=== PATIENT | female | born 2000 | race Caucasian/White ===

== ENCOUNTER 2018-04-04 00:14 | Inpatient (IN) | payer OTHER ==
[2018-04-04] MEDS ORDERED: PROPOFOL/EMULSION 1,000 MG/100 ML BOTTLE IV ONE (00:20)
[2018-04-04] MEDS ORDERED: NS 1,000 ML IV ONE ×2 (00:21→00:23)
[2018-04-04] MEDS ORDERED: SUCCINYLCHOLINE CHLORIDE 200 MG/10 ML SYR IVP ONE (00:22)
[2018-04-04] MEDS ORDERED: ETOMIDATE 40 MG/20 ML INJ IVP ONE (00:22)
[2018-04-04] MEDS ORDERED: ONDANSETRON 4 MG/2 ML VIAL IVP ONE (00:22)
[2018-04-04] MEDS: PROPOFOL/EMULSION 100 ML IV SCH ×2 (00:30→07:55)
[2018-04-04 00:31] LABS: PLATELET COUNT 435 10^3/uL (150-400)
--- NOTE | 2018-04-04 00:31 | EDPHY ---
H & P Time Seen by Provider: 04/04/18 00:24 HPI/ROS: HPI CHIEF COMPLAINT: Unresponsive, alcohol intoxication, unknown drugs, unknown trauma HISTORY OF PRESENT ILLNESS: 17-year-old female, Haydee Nguyen, presents to the emergency room, unresponsive, GCS of 3 upon arrival. She arrived to the emergency room with an oral airway in. Gurgling secretions and hiccuping. EMS reports that she was found outside a fraternity house. Is unclear of drug ingestion or how much alcohol she had. Additionally there is an abrasion seen over nose. No other reported trauma. The patient was initially placed in ER room for however due to help unresponsive she was and GCS of 3 she was moved to ER room 2 for emergent intubation to protect her airway. Blood sugar reported to me as normal upon arrival per EMS. She was placed in a cervical collar. And the patient was emergently intubated upon arrival. Past Medical History: Unknown medical history Past Surgical History: Unknown surgical history Social History: Alcohol this evening unknown co ingestions. Family History: Unknown ROS REVIEW OF SYSTEMS: Limited due to patient's clinical state. Exam Constitutional unresponsive GCS of 3. Gurgling secretions. Hiccuping. Eyes dysconjugate gaze. Pupils 3 mm minimally reactive to light. HENT abrasion to the nasal bridge otherwise atraumatic head and neck exam. moist mucus membranes, no epistaxis, neck supple/ no meningismus, no raccoon eyes. Respiratory gurgling respiration , upper airway secretions hiccuping. Cardiovascular rate normal, regular rhythm, no murmur, no edema, distal pulses normal. Gastrointestinal soft, non-tender, no rebound, no guarding, normal bowel sounds, no distension, no pulsatile mass. Genitourinary no CVA tenderness. Musculoskeletal no midline vertebral tenderness, full range of motion, no calf swelling, no tenderness of extremities, no meningismus, good pulses, neurovascularly intact. Skin abrasion nasal bridge Neurologic unresponsive GCS of 3. Differential Diagnosis: Includes but is not limited to in a particular order acute alcohol intoxication, drug overdose, polysubstance overdose, respiratory failure, intracranial bleed, trauma Medical Decision Making: Plan for this patient she will need to be emergently intubated due to protect her airway giving secretions on exam, unresponsive, hiccuping and most likely acute alcohol intoxication with possible other substance. Re-evaluation: 1220AM: ED intubation Indication for intubation GCS of 3 unresponsive with gurgling secretions and hiccuping. Patient was preoxygenated with a non-rebreather mask, and high-flow oxygen. Oxygen saturation was 100%. RSI medications were used for induction and paralytic. Patient received 20 mg IV etomidate 120 mg succinylcholine A direct visualization of the cords with a MAC 4 blade was obtained. Was able to pass a 7 0 endotracheal tube directly through the cords. The intubation was confirmed with capnography for change, humidified return of air, bilateral breath sounds on exam, and chest x-ray 1230: Patient tolerated intubation well. Plan for blood work, alcohol level, drug screen, Mahajan, OG tube. CT scan head without and cervical spine without for trauma. IV fluids and Zofran. ED x-ray chest one view reviewed for intubation. Endotracheal tube in good position good aeration of both lungs cardiac silhouette normal in size no pneumothorax. OG appears to be in good position with the tip below the diaphragm in the stomach. Image interpreted by myself. Serum alcohol level 504. EKG interpretation by me on record in [facility] system. Impression time of EKG 1:03 a.m., sinus rhythm rate of 75 no signs of acute ischemia or cardiac arrhythmia. Critical Care: Total Critical Care Time Spent Managing this Patient: 65 Minutes. This time was spent Exclusively with this patient. This Care was exclusive of procedures. The Organ System/life at risk was respiratory failure due to acute alcohol intoxication This Patient was in Critical Condition because respiratory failure. X-ray of the chest due to endotracheal tube being pulled back 1 cm endotracheal tube position is good position. Good inflation of the lungs. OG in place. Spoke with Dr. Costa who agrees to admit the patient for respiratory failure for acute alcohol intoxication. 0236: Hospitalist consult to Dr. Costa. Patient remained stable and intubated at this time. Will be transferred to the ICU shortly. Multiple attempts were made to contact her mom. Mom's phone number [phone] Mom's name is Jagruti Source: Patient, EMS Constitutional: Initial Vital Signs Heart Rate 78 04/04/18 00:05 Respiratory Rate 8 L 04/04/18 00:05 Blood Pressure 117/88 H 04/04/18 00:05 O2 Sat (%) 99 04/04/18 00:05 O2 Delivery Mode Ventilator O2 (L/minute) 15 Allergies/Adverse Reactions: peanut Allergy (Verified 04/04/18 11:15) Home Medications: Medication Instructions Recorded Amphet Asp and D/Amphet [Adderall 20 mg PO DAILY PRN 04/04/18 20 mg (*)] Levalbuterol Inhaler [Xopenex Hfa 1 puffs IH TID PRN 04/04/18 Inhaler (*)] Mometasone Furoate Nasal [Nasonex] 1 sprays NASAL DAILY PRN 04/04/18 Mometasone/Formoterol [Dulera 100 1 puffs IH BID 04/04/18 Mcg/5 Mcg Inhaler] Medical Decision Making - Diagnostics Imaging Results: Imaging Impressions Cervical Spine CT 04/04/18 00:22 Impression: 1. No definite fracture. 2. If there is persistent pain or neurological deficit, recommend MR cervical spine and consider flexion and extension views, if clinically indicated. Findings and recommendations discussed with Emergency Department physician, Michael Rodrigues MD, at 0110 hours, 04/04/2018. Final report concurs with initial preliminary interpretation. Head CT 04/04/18 00:22 Impression: 1. Severe chronic sinusitis. 2. No intracranial hemorrhage. Findings and recommendations discussed with Emergency Department physician, Michael Rodrigues MD at 0110 hours, 04/04/2018. Final report concurs with initial preliminary interpretation. - Data Points Laboratory Results: Laboratory Results 04/04/18 00:20 04/04/18 00:20 Medications Given: Discontinued Medications Etomidate (Etomidate) 20 mg IVP EDNOW ONE Stop: 04/04/18 00:23 Last Admin: 04/04/18 00:10 Dose: 20 mg Sodium Chloride (Ns) 1,000 mls @ 0 mls/hr IV EDNOW ONE; Wide Open PRN Reason: Protocol Stop: 04/04/18 00:22 Last Admin: 04/04/18 00:20 Dose: 1,000 mls Sodium Chloride (Ns) 1,000 mls @ 0 mls/hr IV ONCE ONE PRN Reason: Wide Open Stop: 04/04/18 00:24 Last Admin: 04/04/18 00:25 Dose: 1,000 mls Propofol (Diprivan 10 Mg/Ml (Premix)) 100 mls @ 0 mls/hr IV CONT MARI; Titrate PRN Reason: Protocol Stop: 10/01/18 00:29 Last Admin: 04/04/18 07:55 Dose: 100 mls Sodium Chloride (Ns) 1,000 mls @ 125 mls/hr IV CONT MARI Stop: 10/01/18 02:59 Last Admin: 04/04/18 04:19 Dose: 1,000 mls Ondansetron HCl (Zofran) 4 mg IVP EDNOW ONE Stop: 04/04/18 00:23 Last Admin: 04/04/18 00:33 Dose: 4 mg Pantoprazole Sodium (Protonix) 40 mg IVP DAILY MARI Stop: 10/01/18 08:59 Last Admin: 04/04/18 07:55 Dose: 40 mg Succinylcholine Chloride (Quelicin) 120 mg IVP EDNOW ONE Stop: 04/04/18 00:23 Last Admin: 04/04/18 00:10 Dose: 120 mg Point of Care Test Results: Chemistry 04/04/18 01:01 POC Troponin I 0.00 ng/mL ng/mL (0.00-0.08) Blood Gas/Lactic Acid-Arterial 04/04/18 01:10 Tidal Volume 420 Departure - Departure Disposition: [facility] Inpatient Acute Clinical Impression: Respiratory failure Qualifiers: Chronicity: acute Respiratory failure complication: hypoxia Qualified Code(s): J96.01 - Acute respiratory failure with hypoxia Alcohol intoxication Qualifiers: Complication of substance-induced condition: with unspecified complication Qualified Code(s): F10.929 - Alcohol use, unspecified with intoxication, unspecified Condition: Critical
[2018-04-04 00:40] LABS: INR 1.03 (0.83-1.16); PROTIME(PATIENT) 13.7 SEC (12.0-15.0)
[2018-04-04] MEDS ORDERED: ONDANSETRON DISINTEGRATING 4 MG TAB PO PRN (02:52)
[2018-04-04] MEDS ORDERED: PROMETHAZINE HCL 25 MG/ML INJ IVP PRN (02:52)
[2018-04-04] MEDS ORDERED: ONDANSETRON 4 MG/2 ML VIAL IVP PRN (02:52)
[2018-04-04] MEDS ORDERED: ACETAMINOPHEN 325 MG TAB PO PRN (02:52)
[2018-04-04] MEDS ORDERED: NS 1,000 ML IV SCH (03:00)
--- NOTE | 2018-04-04 04:07 | GHP ---
DATE OF ADMISSION: 04/04/2018 The patient is a 17-year-old female with no known past medical history who was found intoxicated outs [place] a fraternity house at [facility]. She was brought to the emergency department with a GCS of 3 and no obvious signs of trauma other than a cut on her nose from possibly falling. She had an oral airway and gurgling secretions and hiccups, and was intubated here. On speaking with the emergency room physician it sounds like there was no evidence of trauma or sexua l assault when Mahajan was placed. The emergency medicine physician left a message for the patient's mother. When I see the patient, she is intubated, sedated with reactive pupils, but otherwise unremarkable. REVIEW OF SYSTEMS: Complete 10-point review of systems attempted, unable to be obtained. PAST MEDICAL HISTORY: Unknown. PAST SURGICAL HISTORY: Unknown. SOCIAL HISTORY: She is a student at from [place]. ALLERGIES: Tree nuts. MEDICATIONS: Unobtainable. FAMILY HISTORY: Unknown. PHYSICAL EXAMINATION: VITAL SIGNS: Temperature 37, blood pressure 110/67, pulse 78, breathing 16 ti mes a minute, 97% on room air. GENERAL: Intubated, sedated. Pupils are equal, round, reactive. Th ere is a small abrasion on her nose, but otherwise unremarkable. Her neck is in a hard collar. LUNG S: Clear to auscultation anterolaterally. HEART: S1, S2. Not tachycardic. ABDOMEN: Soft. LOWER EXTREMITIES: Without edema. SKIN: Without rash, is clean. There is no evidence of trauma. There is a Mahajan in place. NEUROLOGIC: The patient is sedated. LABS: White count 17.5 with a left shift. She has an elevated lymphocyte count, hematocrit 42, plat elets 435,000. Coags normal. ABG is a pH of 7.28 with a pCO2 of 39, PO2 of 321, and a serum bicarb of 19. Sodium 139, potassium 3.7, chloride 106, bicarb 20, BUN 10, creatinine 0.7, glucose 104. LFT s normal. Beta HCG negative. Troponin 0.00. Tox screen is non-negative for amphetamine as well as an alcohol level of 500. Chest x-ray interpreted by me shows ET tube above the rosa with clear lungs, normal heart size. Cervical spine CT is unremarkable for bony injury. Head CT is unremarkable. I discussed the case with Dr. Michael Rodrigues. ASSESSMENT/PLAN: A 17-year-old female found down with significant alcohol intoxication. 1. Respiratory failure. The patient is intubated for airway issues secondary to her intoxication. She has clear lungs. We will keep her on a vent strategy overnight and expect to extubate her when s he is more alert. 2. Alcohol intoxication. This is significant for a 17-year-old. She does not appear to be an alcoh olic in the sense of normal labs, etc.; however, this is really not known. I think there is low risk for withdrawal. 3. Question cervical spine trauma. The patient's neck can be clinically cleared when she wakes up i n the morning. She is in a hard collar because of potential for ligamentous injury given the fall on her face. 4. Prophylaxis. I will give the patient a PPI once daily as she is intubated and not eating and rat her alcohol intoxicated. VTE prophylaxis can be initiated if she is not extubated in the first 24 ho urs, which I strongly suspect she will. DISPOSITION: Observation status. Forty minutes of critical care. /[id number]/MODL
[2018-04-04] MEDS ORDERED: PANTOPRAZOLE SODIUM 40 MG VIAL IVP SCH (09:00)
--- NOTE | 2018-04-04 12:54 | PDDCSUM ---
Discharge Summary Discharge Summary: Date of Admission: 04/04/2018 Date of Discharge: 04/04/2018 Consultants: correctional therapy teacher Procedures: 1. Endotracheal intubation Discharge Diagnoses: 1. Severe alcohol intoxication 2. Acute respiratory failure, resolved 3. Acute toxic encephalopathy, resolved 4. Leukocytosis 5. H/o asthma Brief Hospital Course: 17yo healthy F who is a [employer] student was brought in after friends called paramedics due to her severe alcohol intoxication. She was at a fraternity libertarian earlier in the evening before her friends took her back to an apartment. She was then transported to the ED where she was found to have a GCS of 3 and was intubated for airway protection. She was successfully extubated to room air the next morning. Her serum ethyl alcohol level was 504. She was monitored and discharged later that evening. Her mother flew in from [place], and I spoke with her in person regarding the events per the patient's request. Of note, there were no outward physical signs of assault; the ED providers also noted no vaginal trauma when montano was being placed. Medications: Please refer to EMR for complete list. No changes were made. Follow Up Plan: 1. Recommended she establish with PCP to discuss etoh use/abuse Physical Exam: Vitals reviewed, stable. Alert and oriented, rrr, lungs clear, abdomen soft, few abrasions on skin, mild swelling at bridge of nose.
--- NOTE | 2018-04-04 13:30 | ASMTCASEMG ---
Living Arrangements What is your living Answers: With Other (Not Family) arrangement? Who do you live with? Type Of Residence What kind of residence do Answers: Apartment you live in? Discharge Plan Comments Coordination Status Comments Notes: Patient is a 17yo single female who was found down with significant ETOH intoxication and respiratory failure. (BAL 504) Patient had to be emergently intubated to protect her airway in the ER. Patient is a student at . She will need a CAGE and resources before discharge. Patient's mother is flying here today from [place] and is expected to arrive at 5:00 PM this evening. Patient was extubated and is stable for discharge later today. CM has made an attempt to do CAGE but patient was sleeping. Will visit again in an hour. CM will follow. Date Signed: 04/04/2018 01:29 PM Electronically Signed By:Katja Lewis LCSW
--- NOTE | 2018-04-04 14:13 | WOCRNPDOC ---
WOCRN Advanced Assessment Note - Skin Integrity Problem, Advanced Assess Left Wrist Dressing Type: Allevyn Life Integumentary Issue Intervention: Dressing Removed Skin Integrity Problem Comment: No breakdown noted. Wound care will sign off. Katya MARCIAL in room for assessment.
--- NOTE | 2018-04-04 15:01 | PDMN ---
Medical Necessity Medical necessity: Change to inpt as of 04/04/18 @ 14:21 per MD order and MCG M- 595, Substance-Related Disorders, 2 days. 17 y/o found down, intoxicated w/GCS of 3, admitted w/resp failure requiring intubation for airway issues r/t intoxication, tox screen non-negative for amphetamines and alcohol lv of 504, WBC's elev w/shift to left. IV propofol, IVF, ICU monitoring/care.
--- NOTE | 2018-04-04 17:32 | ASMTCMCOM ---
CM Note CM Note Notes: Met with the patient and a CAGE was completed. Patient was given resources regarding alcohol use. She was appreciative as she considers this her wake up call. Patient's mother arrives tonight. Patient is missing school at but it's just the beginning of classes so she states her friends can cherry picker operator the information for her. No further needs. Date Signed: 04/04/2018 05:30 PM Electronically Signed By:Katja Lewis LCSW
--- NOTE | 2018-04-04 17:34 | ASMTCAGE ---
CAGE Do you feel you ought to Answers: Yes cut down on your drinking or drug use? Do people annoy you by Answers: No criticizing your drinking or drug use? Do you feel guilty about Answers: No your drinking or drug use? Do you drink or use drugs Answers: No first thing in the morning (Eye Coil Assembler)? Additional Comments This was an isolated incident Date Signed: 04/04/2018 05:32 PM Electronically Signed By:Katja Lewis LCSW
[2018-04-04 18:38] VITALS: BP 107/57
--- NOTE | 2018-04-04 22:31 | GCON ---
CRITICAL CARE CONSULT DATE OF CONSULTATION: 04/04/2018 HISTORY OF PRESENT ILLNESS: This patient is a 17-year-old female who was found unresponsive last carlie briana at a fraternity constitution party who was stumbling about and had some minor abrasions. She was found in [facility] emergency department to have a GCS of only 3 and not protecting her airway, so she was intubated at that time. White count was 17, and a blood gas showed a metabolic acidosis, but she was otherwise s table. Tox screen showed a blood alcohol level of 500 and amphetamines. Otherwise hemodynamics were quite stable and she was on the ventilator over the course of the evening without difficulty. REVIEW OF SYSTEMS: Otherwise negative. PAST MEDICAL HISTORY: Includes asthma which is well controlled on Dulera. PAST SURGICAL HISTORY: None. SOCIAL HISTORY: She is a nonsmoker. Denies any long-term alcohol issues according to her friends. CURRENT MEDICATIONS: Include Tylenol, Zofran, Protonix, propofol, normal saline. EXAM: VITAL SIGNS: At the time my evaluation, blood pressure of 102/60, heart rate of 106, respirat ions 24, oxygen saturation was 99%. GENERAL: She was somewhat sedated on the ventilator with propof ol but breathing with the vent. She did arouse to voice. She did follow commands. She nodded her h ead appropriately. HEENT: Pupils are equally round and reactive to light. Nonicteric and noninject ed. NECK: Supple, without adenopathy. RESPIRATORY: Breath sounds were clear to auscultation witho ut wheezes, rubs, or rales. HEART: Regular rate and rhythm. ABDOMEN: Soft, nontender, nondistende d without hepatosplenomegaly. EXTREMITIES: No clubbing, cyanosis, or edema. NEUROLOGIC: Nonfocal. OBJECTIVE DATA: Includes chest x-ray showing no infiltrates. White count was 17, platelets 435. Co ags were normal. Basic metabolic panel is also normal save for a bicarb of 19, anion gap of 10. Tox screen as described showing amphetamines and ethyl alcohol. ASSESSMENT/PLAN: 1. Respiratory failure due to severe alcohol intoxication: She seems to be doing quite well. Her m other is coming from [place] today at some point to see her, but I think she is nearing extubation and may be ready for discharge quite soon. At this point we should withhold her sedation and give h er brief weaning trials on CPAP, which I assume she will probably do well with, and extubate. 2. Asthma. Once she is extubated we can find out her normal medications are, and we can apply those as needed. A total of 35 minutes of critical care time was required for this patient. /[id number]/MODL
--- NOTE | 2018-04-06 21:57 | CPEKG ---
Test Reason : OPEN Blood Pressure : / mmHG Vent. Rate : 075 BPM Atrial Rate : 075 BPM P-R Int : 149 ms QRS Dur : 085 ms QT Int : 455 ms P-R-T Axes : 064 069 050 degrees QTc Int : 509 ms Sinus rhythm Prolonged QT interval Confirmed by Michael Rodrigues ([id number]) on 04/06/2018 9:56:44 PM Referred By: Confirmed By:Michael Rodrigues
== END 2018-04-04 19:04 | disposition home or self-care (01) | DRG 896 ==
LOC: EDBD 00:14 → F2N 03:20
PROVIDERS: ADMIT Internal Medicine; ATTEND Internal Medicine
DX: F10.129 Alcohol abuse with intoxication, unspecified (principal); J96.01 Acute respiratory failure with hypoxia; J45.909 Unspecified asthma, uncomplicated
CPT/HCPCS: 80305; 84484-ER; 96365; 96366; G0480; J0330; J2405; J2704